=== PATIENT | male | born 1995 | race Caucasian/White ===

== ENCOUNTER 2017-01-02 18:54 | Emergency (ER) | payer BC, SELFPAY ==
[2017-01-02] MEDS ORDERED: ONDANSETRON 4 MG ORAL DISINTEGRATING TAB (S0181) As Ordered ONE (20:17)
--- NOTE | 2017-01-02 21:08 | EDDOCDS ---
Nurse's Notes [facility] Name: Elias Denson Age: 21 yrs Sex: Male : 1995 Arrival Date: 01/02/2017 Time: 18:54 Bed PR Private MD: Nura Patrick Diagnosis: Nausea-mild food poisoning;Diarrhea, unspecified Presentation: 01/02 19:00 Presenting complaint: Patient states: upper abdominal pain with nausea, states "feels af2 bloated," diarrhea today. started around noon. Risk factors: the patient reports not having a history of previous torsion. Adult Sepsis Screening: The patient does not have new or worsening altered mentation. Patient's respiratory rate is less than 22. Systolic blood pressure is greater than 100. Patient has a qSOFA score of 0- Negative Sepsis Screen. Suicide/Homicide risk assessment- the patient denies having any suicidal and/or homicidal ideations and does not present with any other emotional, behavioral or mental health complaints. Status: Patient is not a client service manager or dependent. Transition of care: patient was not received from another setting of care. 19:00 Acuity: DAVID Level 3 af2 19:00 Method Of Arrival: Walkin/Carried/Asstd af2 Triage Assessment: 19:02 General: Appears in no apparent distress, Behavior is cooperative. Pain: Location: af2 abdomen Pain currently is 7 out of 10 on a pain scale. Pt Declines HIV testing. GI: Reports upper abd pain, nausea. Historical: - Allergies: No known drug Allergies; - Home Meds: 1. none - PMHx: none; - PSHx: none; - Social history: Smoking status: Patient uses tobacco products, current every day smoker. No barriers to communication noted, The patient speaks fluent Telugu. - Family history: No immediate family members are acutely ill. - : The pt / caregiver states he / she is not on anticoagulants. Home medication list is obtained from the patient. - Exposure Risk Screening:: None identified. Screenin:02 Screening information is obtained from the patient. Fall risk: No risks identified. af2 Assistance ADL's: requires no assistance with activities of daily living. Abuse/DV Screen: The patient / caregiver reports he/she is: not in a situation that causes fear, pain or injury. Nutritional screening: No deficits noted. Advance Directives: Currently, there is no health care proxy. home support is adequate. Assessment: 20:20 General: Appears in no apparent distress, Behavior is appropriate for age, cooperative, sls1 Pt medicated per order. Report no bowel movement since this am, denies vomiting but reports "bloating" and nausea.. Pain: Location: abdomen Pain currently is 6 out of 10 on a pain scale. Neurological: Level of Consciousness is awake, alert. Respiratory: Airway is patent Respiratory effort is even, unlabored, Respiratory pattern is regular, symmetrical. GI: Abdomen is non- distended Bowel sounds present X 4 quads. Abd is soft and non tender X 4 quads. Reports bloating, nausea. Derm: No deficits noted. 20:59 General: Appears in no apparent distress, Pt tolerated po fluids without difficulty. . sls1 21:05 General: Appears in no apparent distress, Behavior is appropriate for age, cooperative, sls1 Discharge instructions reviewed with pt including medication use, brat diet and follow up care, verbalizes understanding of all instructions, dc home. Neurological: No deficits noted. Respiratory: No deficits noted. Derm: No deficits noted. Vital Signs: 18:56 BP 143 / 68; Pulse 89; Resp 18 S; Temp 97.8(O); Pulse Ox 98% on R/A; Weight 83.91 kg gr2 (R); Height 5 ft. 8 in. (172.72 cm) (R); Pain 7/10; 21:05 BP 124 / 72; Pulse 79; Resp 18; Temp 97.6(O); Pulse Ox 99% on R/A; Pain 5/10; sls1 18:56 Body Mass Index 28.13 (83.91 kg, 172.72 cm) gr2 Vitals: 18:56 Log In Time: January 02, 2017 at 18:56. gr2 ED Course: 18:56 Patient visited by Gabriella Hinson. gr2 18:56 Nura Patrick is Private Physician. gr2 18:56 Patient moved to Waiting gr2 18:58 Patient visited by Gabriella Hinson. gr2 18:58 Patient moved to Pre RCE gr2 19:01 Triage Initiated af2 19:03 Patient visited by Ailin Banda RN. af2 19:30 Patient moved to Triage 2 sew 20:03 [facility] ar2 20:03 Jacoby Frances DO is Attending Physician. ar2 20:03 Patient visited by Julius Cavazos PA-C. ar2 20:14 Patient moved to PR2 / sls1 20:15 Patient moved to PR1 / sls1 20:20 The patient / caregiver is instructed regarding the plan of care and ED course. sls1 Accompanied by Significant Other, Patient has correct armband on for positive identification. 20:20 No IV's were initiated during this patient's visit. No procedures done that require sls1 assistance. 20:21 Patient visited by Ale Grover RN. sls1 20:59 Patient visited by Ale Grover RN. [facility] Administered Medications: 20:20 Drug: Ondansetron ODT 4 mg [ondansetron 4 mg disintegrating tablet (1 tabs)] Route: PO; sls1 21:07 Follow up: Response: Nausea is resolved sls1 Order Results: There are currently no results for this order. Outcome: 20:57 Discharge ordered by Provider. ar2 21:05 Discharge Assessment: Patient awake, alert and oriented x 3. No cognitive and/or sls1 functional deficits noted. Patient verbalized understanding of disposition instructions. patient administered narcotics - no. The following High Risk Discharge criteria are identified: None. Discharged to home ambulatory. Condition: stable. Discharge instructions given to patient, Instructed on discharge instructions, follow up and referral plans. medication usage, Demonstrated understanding of instructions, medications, Pt was receptive of discharge instructions/ teaching. Prescriptions given X 1, Work note provided to patient. No special radiology studies were completed. Property :Personal belongings accompany Pt. 21:07 Patient left the ED. sls1 Signatures: Julius Cavazos PA-C PA-C ar2 Ale Grover, RN RN sls1 Chantelle Burgos Gainslee gr2 Ailin Banda RN RN af2 MTDD
--- NOTE | 2017-01-02 21:08 | EDDOCDS ---
Physician Documentation [facility] Name: Elias Denson Age: 21 yrs Sex: Male : 1995 Arrival Date: 01/02/2017 Time: 18:54 Bed PR Private MD: Nura Patrick Disposition: 01/02/17 20:57 Discharged to Home/Self Care. Impression: Nausea - mild food poisoning, Diarrhea, unspecified. - Condition is Stable. - Discharge Instructions: Food Poisoning. - Prescriptions for ZOFRAN ODT 4 mg Oral - dissolve 1 tablet by ORAL route every 8 hours As needed do not chew, do not swallow whole; 10 tablet. - Medication Reconciliation, Local Pharmacy Hours, Work Release Form - 2 day form. - Follow up: Emergency Department; When: As needed; Reason: Fever > 102F, Worsening of conditions. - Problem is new. - Symptoms have improved. Historical: - Allergies: No known drug Allergies; - Home Meds: 1. none - PMHx: none; - PSHx: none; - Social history: Smoking status: Patient uses tobacco products, current every day smoker. No barriers to communication noted, The patient speaks fluent Czech. - Family history: No immediate family members are acutely ill. - : The pt / caregiver states he / she is not on anticoagulants. Home medication list is obtained from the patient. - Exposure Risk Screening:: None identified. Vital Signs: 01/02 18:56 BP 143 / 68; Pulse 89; Resp 18 S; Temp 97.8(O); Pulse Ox 98% on R/A; Weight 83.91 kg / gr2 184.99 lbs (R); Height 5 ft. 8 in. (172.72 cm) (R); Pain 7/10; 21:05 BP 124 / 72; Pulse 79; Resp 18; Temp 97.6(O); Pulse Ox 99% on R/A; Pain 5/10; sls1 18:56 Body Mass Index 28.13 (83.91 kg, 172.72 cm) gr2 MDM: 20:11 Ondansetron ODT Oral Disintegrating Tablet 4 mg PO once ordered. ar2 20:11 Fluid Challenge ordered. ar2 20:44 Financial registration complete. gjb Administered Medications: 20:20 Drug: Ondansetron ODT 4 mg [ondansetron 4 mg disintegrating tablet (1 tabs)] Route: PO; [facility] 21:07 Follow up: Response: Nausea is resolved [facility] Signatures: Julius Cavazos PA-C PA-C ar2 Ale Grover RN RN sls1 Ailin Banda RN RN af2 Carli Dinh MTDD
--- NOTE | 2017-01-04 22:08 | EDDOCDS ---
Physician Documentation [facility] Name: Elias Denson Age: 21 yrs Sex: Male : 1995 Arrival Date: 01/02/2017 Time: 18:54 Bed PR Private MD: Nura Patrick Disposition: 01/02/17 20:57 Discharged to Home/Self Care. Impression: Nausea - mild food poisoning, Diarrhea, unspecified. - Condition is Stable. - Discharge Instructions: Food Poisoning. - Prescriptions for ZOFRAN ODT 4 mg Oral - dissolve 1 tablet by ORAL route every 8 hours As needed do not chew, do not swallow whole; 10 tablet. - Medication Reconciliation, Local Pharmacy Hours, Work Release Form - 2 day form. - Follow up: Emergency Department; When: As needed; Reason: Fever > 102F, Worsening of conditions. - Problem is new. - Symptoms have improved. Historical: - Allergies: No known drug Allergies; - Home Meds: 1. none - PMHx: none; - PSHx: none; - Social history: Smoking status: Patient uses tobacco products, current every day smoker. No barriers to communication noted, The patient speaks fluent Setswana. - Family history: No immediate family members are acutely ill. - : The pt / caregiver states he / she is not on anticoagulants. Home medication list is obtained from the patient. - Exposure Risk Screening:: None identified. Vital Signs: 01/02 18:56 BP 143 / 68; Pulse 89; Resp 18 S; Temp 97.8(O); Pulse Ox 98% on R/A; Weight 83.91 kg / gr2 184.99 lbs (R); Height 5 ft. 8 in. (172.72 cm) (R); Pain 7/10; 21:05 BP 124 / 72; Pulse 79; Resp 18; Temp 97.6(O); Pulse Ox 99% on R/A; Pain 5/10; sls1 18:56 Body Mass Index 28.13 (83.91 kg, 172.72 cm) gr2 MDM: 20:11 Ondansetron ODT Oral Disintegrating Tablet 4 mg PO once ordered. ar2 20:11 Fluid Challenge ordered. ar2 20:44 Financial registration complete. [facility] 21:57 [facility] Payment Agreement was scanned into [employer] and attached to record. gjb 01/03 12:16 T-Sheet-- Draft Copy was scanned into [employer] and attached to record. gb Administered Medications: 01/02 20:20 Drug: Ondansetron ODT 4 mg [ondansetron 4 mg disintegrating tablet (1 tabs)] Route: PO; [facility] 21:07 Follow up: Response: Nausea is resolved [facility] Signatures: Laina Yoder, Reg Reg gb Julius Cavazos PA-C PA-C ar2 Ale Grover RN RN [facility] Ailin Banda RN RN af2 Carli Dinh [facility] The chart was reviewed and I authenticate all verbal orders and agree with the evaluation and treatment provided.Attachments: 21:57 [facility] Payment Agreement [facility] 01/03 12:16 T-Sheet-- Draft Copy gb Chart Complete MTDD
--- NOTE | 2017-01-04 22:08 | EDDOCDS ---
Nurse's Notes [facility] Name: Elias Denson Age: 21 yrs Sex: Male : 1995 Arrival Date: 01/02/2017 Time: 18:54 Bed PR Private MD: Nura Patrick Diagnosis: Nausea-mild food poisoning;Diarrhea, unspecified Presentation: 01/02 19:00 Presenting complaint: Patient states: upper abdominal pain with nausea, states "feels af2 bloated," diarrhea today. started around noon. Risk factors: the patient reports not having a history of previous torsion. Adult Sepsis Screening: The patient does not have new or worsening altered mentation. Patient's respiratory rate is less than 22. Systolic blood pressure is greater than 100. Patient has a qSOFA score of 0- Negative Sepsis Screen. Suicide/Homicide risk assessment- the patient denies having any suicidal and/or homicidal ideations and does not present with any other emotional, behavioral or mental health complaints. Status: Patient is not a conference services coordinator or dependent. Transition of care: patient was not received from another setting of care. 19:00 Acuity: DAVID Level 3 af2 19:00 Method Of Arrival: Walkin/Carried/Asstd af2 Triage Assessment: 19:02 General: Appears in no apparent distress, Behavior is cooperative. Pain: Location: af2 abdomen Pain currently is 7 out of 10 on a pain scale. Pt Declines HIV testing. GI: Reports upper abd pain, nausea. Historical: - Allergies: No known drug Allergies; - Home Meds: 1. none - PMHx: none; - PSHx: none; - Social history: Smoking status: Patient uses tobacco products, current every day smoker. No barriers to communication noted, The patient speaks fluent Yakut. - Family history: No immediate family members are acutely ill. - : The pt / caregiver states he / she is not on anticoagulants. Home medication list is obtained from the patient. - Exposure Risk Screening:: None identified. Screenin:02 Screening information is obtained from the patient. Fall risk: No risks identified. af2 Assistance ADL's: requires no assistance with activities of daily living. Abuse/DV Screen: The patient / caregiver reports he/she is: not in a situation that causes fear, pain or injury. Nutritional screening: No deficits noted. Advance Directives: Currently, there is no health care proxy. home support is adequate. Assessment: 20:20 General: Appears in no apparent distress, Behavior is appropriate for age, cooperative, sls1 Pt medicated per order. Report no bowel movement since this am, denies vomiting but reports "bloating" and nausea.. Pain: Location: abdomen Pain currently is 6 out of 10 on a pain scale. Neurological: Level of Consciousness is awake, alert. Respiratory: Airway is patent Respiratory effort is even, unlabored, Respiratory pattern is regular, symmetrical. GI: Abdomen is non- distended Bowel sounds present X 4 quads. Abd is soft and non tender X 4 quads. Reports bloating, nausea. Derm: No deficits noted. 20:59 General: Appears in no apparent distress, Pt tolerated po fluids without difficulty. . sls1 21:05 General: Appears in no apparent distress, Behavior is appropriate for age, cooperative, sls1 Discharge instructions reviewed with pt including medication use, brat diet and follow up care, verbalizes understanding of all instructions, dc home. Neurological: No deficits noted. Respiratory: No deficits noted. Derm: No deficits noted. Vital Signs: 18:56 BP 143 / 68; Pulse 89; Resp 18 S; Temp 97.8(O); Pulse Ox 98% on R/A; Weight 83.91 kg gr2 (R); Height 5 ft. 8 in. (172.72 cm) (R); Pain 7/10; 21:05 BP 124 / 72; Pulse 79; Resp 18; Temp 97.6(O); Pulse Ox 99% on R/A; Pain 5/10; sls1 18:56 Body Mass Index 28.13 (83.91 kg, 172.72 cm) gr2 Vitals: 18:56 Log In Time: January 02, 2017 at 18:56. gr2 ED Course: 18:56 Patient visited by Gabriella Hinson. gr2 18:56 Nura Patrick is Private Physician. gr2 18:56 Patient moved to Waiting gr2 18:58 Patient visited by Gabriella Hinson. gr2 18:58 Patient moved to Pre RCE gr2 19:01 Triage Initiated af2 19:03 Patient visited by Ailin Banda RN. af2 19:30 Patient moved to Triage 2 sew 20:03 [facility] ar2 20:03 Jacoby Frances DO is Attending Physician. ar2 20:03 Patient visited by Julius Cvaazos PA-C. ar2 20:14 Patient moved to PR2 / sls1 20:15 Patient moved to PR1 / 25 sls1 20:20 The patient / caregiver is instructed regarding the plan of care and ED course. sls1 Accompanied by Significant Other, Patient has correct armband on for positive identification. 20:20 No IV's were initiated during this patient's visit. No procedures done that require sls1 assistance. 20:21 Patient visited by Ale Grover RN. sls1 20:59 Patient visited by Ale Grover RN. sls1 21:57 [facility] Payment Agreement was scanned into [employer] and attached to record. pito 01/03 12:16 T-Sheet-- Draft Copy was scanned into [employer] and attached to record. gb Administered Medications: 01/02 20:20 Drug: Ondansetron ODT 4 mg [ondansetron 4 mg disintegrating tablet (1 tabs)] Route: PO; [facility] 21:07 Follow up: Response: Nausea is resolved [facility] Order Results: There are currently no results for this order. Outcome: 20:57 Discharge ordered by Provider. ar2 21:05 Discharge Assessment: Patient awake, alert and oriented x 3. No cognitive and/or [facility] functional deficits noted. Patient verbalized understanding of disposition instructions. patient administered narcotics - no. The following High Risk Discharge criteria are identified: None. Discharged to home ambulatory. Condition: stable. Discharge instructions given to patient, Instructed on discharge instructions, follow up and referral plans. medication usage, Demonstrated understanding of instructions, medications, Pt was receptive of discharge instructions/ teaching. Prescriptions given X 1, Work note provided to patient. No special radiology studies were completed. Property :Personal belongings accompany Pt. 21:07 Patient left the ED. [facility] Signatures: Laina Yoder, Danny Reg gb Julius Cavazos PA-C PA-C ar2 Ale Grover RN RN sls1 Chantelle Burgos Gainslee gr2 Ailin Banda RN RN af2 Carli Dinh [facility] Chart Complete MTDD
--- NOTE | 2017-01-04 22:08 | EDDOCDS ---
Physician Documentation [facility] Name: Elias Denson Age: 21 yrs Sex: Male : 1995 Arrival Date: 01/02/2017 Time: 18:54 Bed PR Private MD: Nura Patrick Disposition: 01/02/17 20:57 Discharged to Home/Self Care. Impression: Nausea - mild food poisoning, Diarrhea, unspecified. - Condition is Stable. - Discharge Instructions: Food Poisoning. - Prescriptions for ZOFRAN ODT 4 mg Oral - dissolve 1 tablet by ORAL route every 8 hours As needed do not chew, do not swallow whole; 10 tablet. - Medication Reconciliation, Local Pharmacy Hours, Work Release Form - 2 day form. - Follow up: Emergency Department; When: As needed; Reason: Fever > 102F, Worsening of conditions. - Problem is new. - Symptoms have improved. Historical: - Allergies: No known drug Allergies; - Home Meds: 1. none - PMHx: none; - PSHx: none; - Social history: Smoking status: Patient uses tobacco products, current every day smoker. No barriers to communication noted, The patient speaks fluent Mongolian. - Family history: No immediate family members are acutely ill. - : The pt / caregiver states he / she is not on anticoagulants. Home medication list is obtained from the patient. - Exposure Risk Screening:: None identified. Vital Signs: 01/02 18:56 BP 143 / 68; Pulse 89; Resp 18 S; Temp 97.8(O); Pulse Ox 98% on R/A; Weight 83.91 kg / gr2 184.99 lbs (R); Height 5 ft. 8 in. (172.72 cm) (R); Pain 7/10; 21:05 BP 124 / 72; Pulse 79; Resp 18; Temp 97.6(O); Pulse Ox 99% on R/A; Pain 5/10; sls1 18:56 Body Mass Index 28.13 (83.91 kg, 172.72 cm) gr2 MDM: 20:11 Ondansetron ODT Oral Disintegrating Tablet 4 mg PO once ordered. ar2 20:11 Fluid Challenge ordered. ar2 20:44 Financial registration complete. [facility] 21:57 [facility] Payment Agreement was scanned into [employer] and attached to record. gjb 01/03 12:16 T-Sheet-- Draft Copy was scanned into [employer] and attached to record. gb Administered Medications: 01/02 20:20 Drug: Ondansetron ODT 4 mg [ondansetron 4 mg disintegrating tablet (1 tabs)] Route: PO; [facility] 21:07 Follow up: Response: Nausea is resolved [facility] Signatures: Laina Yoder, Reg Reg gb Julius Cavazos PA-C PA-C ar2 Ale Grover RN RN [facility] Ailin Banda RN RN af2 Carli Dinh [facility] The chart was reviewed and I authenticate all verbal orders and agree with the evaluation and treatment provided.Attachments: 21:57 [facility] Payment Agreement [facility] 01/03 12:16 T-Sheet-- Draft Copy gb Chart Complete MTDD
== END 2017-01-02 21:07 | disposition home or self-care (01) ==
LOC: M ED 18:54
DX: T62.91XA Toxic effect of unspecified noxious substance eaten as food, accidental (unintentional), initial encounter (principal); R11.10 Vomiting, unspecified; R19.7 Diarrhea, unspecified; F17.200 Nicotine dependence, unspecified, uncomplicated; Y92.89 Other specified places as the place of occurrence of the external cause

== ENCOUNTER → 2017-02-14 | Outpatient (CLI) | payer BC ==
--- NOTE | 2017-02-14 11:00 | REP ---
LEFT KNEE SERIES, FIVE VIEWS: There is no evidence of an acute fracture, dislocation or intrinsic bone disease. IMPRESSION: No fracture or dislocation. Signed by Randy Ervin MD 02/14/2017 03:54 P
== END ==
LOC: M LRY 10:25
PROVIDERS: ATTEND Nurse Practitioner Family
DX: M25.562 Pain in left knee (principal)

== ENCOUNTER 2018-03-01 14:20 | Emergency (ER) | payer BC | END 2018-03-01 16:20 | disposition left against medical advice (07) | LOC: M ED 14:20 | DX: Z53.21 Procedure and treatment not carried out due to patient leaving prior to being seen by health care provider (principal) ==

== ENCOUNTER → 2019-03-15 | Outpatient (CLI) | payer BC ==
[~2019-03-15] MED LIST: MELO15TA28
--- NOTE | 2019-03-15 12:40 | REP ---
LUMBAR SPINE, FIVE VIEWS: HISTORY: Back injury. There is no acute fracture or subluxation. The L4-5 intervertebral disc is decreased in height consistent with disc degeneration. The facet joints are normal in appearance. IMPRESSION: Degenerative change as described above. Electronically Signed by Emanuel Baker MD 03/15/2019 12:44 P
== END ==
LOC: M LRY 12:02
PROVIDERS: ATTEND Physician Assistant
DX: M51.36 Other intervertebral disc degeneration, lumbar region (principal)

== ENCOUNTER → 2019-10-17 | Outpatient (REF) | payer BC | LOC: M SFHCLERA 11:27 | PROVIDERS: ATTEND Nurse Practitioner Family | DX: J02.9 Acute pharyngitis, unspecified (principal) ==

== ENCOUNTER → 2020-06-02 | Outpatient (CLI) | payer BC ==
--- NOTE | 2020-06-02 09:39 | REPVR ---
PROCEDURE INFORMATION: Exam: MR Lumbar Spine Without Contrast. Exam date and time: 06/02/2020 8:12 AM Age: 24 years old Clinical indication: Injury or trauma; Fall; Follow-up exam; Fracture, traumatic injury; Not specified; Third lumbar vertebra; Injury date: 03/03; Additional info: Lower back pain TECHNIQUE: Imaging protocol: Multiplanar magnetic resonance images of the lumbar spine without intravenous contrast. COMPARISON: CR SPINE LS COMPLETE 03/15/2019 12:12 PM FINDINGS: Vertebrae: A focal fracture traverses the anterior and superior margin of the L3 body, with minimal ventral wedging. There is minimal focal edema, compatible with subacute time course. Normal vertebral body heights are otherwise preserved. There is no listhesis. Spinal cord: The conus medullaris terminates at T12/L1. L1-L2: There is shallow disc bulging. There is mild facet hypertrophy. The spinal canal and neural foramina are patent. L2-L3: There is shallow disc bulging. There is mild facet and ligamentous hypertrophy. The spinal canal and neural foramina are patent. L3-L4: There is mild facet hypertrophy. The spinal canal and neural foramina are patent. L4-L5: There is shallow disc bulging. There is mild facet hypertrophy. There is mild canal stenosis, with a residual diameter of 10 mm. The neural foramina are patent. L5-S1: There is diffuse disc bulging with a prominent central/left paracentral component and annular tear. This indents the ventral thecal sac, contributing to mild canal stenosis. There is mild facet hypertrophy. The neural foramina are patent Soft tissues: Unremarkable. IMPRESSION: Late subacute fracture traversing the anterior and superior margin of the L3 body. Electronically signed by: Aditi Hogan On 06/02/2020 09:39:06 AM
== END ==
LOC: M RAD 07:26
PROVIDERS: ATTEND Orthopaedic Surgery
DX: S32.000D Wedge compression fracture of unspecified lumbar vertebra, subsequent encounter for fracture with routine healing (principal); M51.26 Other intervertebral disc displacement, lumbar region; X58.XXXD Exposure to other specified factors, subsequent encounter; Y92.9 Unspecified place or not applicable

== ENCOUNTER 2022-03-09 19:26 | Emergency (ER) | payer BC ==
[~2022-03-09] VITALS: Ht 177.8 cm; Wt 108.2 kg
[2022-03-09 19:27] VITALS: BP 136/90
== END 2022-03-09 21:05 | disposition left against medical advice (07) ==
LOC: M ED 19:26
DX: Z53.21 Procedure and treatment not carried out due to patient leaving prior to being seen by health care provider (principal)